=== PATIENT | male | born 1975 | race Caucasian/White ===

== ENCOUNTER 2019-04-16 14:09 | Outpatient (CLI) | payer MEDICAID ==
[~2019-04-16] VITALS: Ht 182.9 cm; Wt 77.6 kg
[2019-04-16 15:54] VITALS: BP 128/72
[2019-04-16] MEDS ORDERED: LEVOTHYROXINE125 MCG ORAL (15:54)
--- NOTE | 2019-04-16 17:15 | Consultation ---
DATE OF CONSULTATION: 04/16/2019 CONSULTING PHYSICIAN: Gibson Puentes M.D. CHIEF COMPLAINT: Constipation, rectal bleeding, rectal hemorrhoids, questionable anal fissures. HISTORY OF PRESENT ILLNESS: This is a 43-year-old male with history of Pradip disease and history of appendectomy complicated with small-bowel obstruction. He later presented to our office with complaint of constipation, rectal bleeding, and anal fissures. PAST MEDICAL HISTORY: 1. Pradip's. 2. Hypothyroidism. 3. IBS. 4. Depression. 5. Celiac disease per the patient. PAST SURGICAL HISTORY: 1. Appendectomy. 2. Small-bowel obstruction. MEDICATIONS: Levothyroxine. FAMILY HISTORY: No family history of GI malignancies. SOCIAL HISTORY: The patient denies any tobacco, alcohol, or IV drug abuse. ALLERGIES: Allergic to multiple food allergies including gluten. REVIEW OF SYSTEMS: Positive for constipation, rectal bleeding, and rectal pain. PHYSICAL EXAMINATION: VITAL SIGNS: Temperature 98, blood pressure is 128/72, pulse 68, and respirations 20. HEENT: Normocephalic and atraumatic. Sclerae anicteric. NECK: Supple. No evidence of obvious lymphadenopathy. CARDIOVASCULAR: Regular rate and rhythm. Plus S1 and S2. No obvious murmur. LUNGS: Clear to auscultation bilaterally. ABDOMEN: Positive bowel sounds. Soft, nontender. No rebound. No guarding. No peritoneal sign. EXTREMITIES: No cyanosis. No clubbing. No edema. ASSESSMENT AND PLAN: This is a 43-year-old male with constipation, hemorrhoids, rectal bleeding, anal fissures, and possible celiac disease. PLAN: The patient will need a colonoscopy for few reasons, one is for evaluation for anal fissures and rule out Crohn disease given anal fissures. He also has rectal bleeding and needs evaluation. The patient was given instruction and preparation for colonoscopy, pending authorization. In terms of constipation, we will start the patient on trial of Linzess 72 the patient was also given sample of 145. We recommended the patient to be tapered off of magnesium supplement he takes for constipation. On the procedure day, we will discuss with the patient regarding efficacy of this Linzess. Gibson Santos Puentes DR: RONALDO JOB#: [id number] CC:
== END 2019-04-16 16:00 | disposition home or self-care (01) ==
LOC: PAN 14:09
DX: K59.00 Constipation, unspecified (principal); K64.9 Unspecified hemorrhoids; K62.5 Hemorrhage of anus and rectum; K60.2 Anal fissure, unspecified; Z90.89 Acquired absence of other organs; E03.9 Hypothyroidism, unspecified; F32.9 Major depressive disorder, single episode, unspecified; K58.9 Irritable bowel syndrome, unspecified; K90.0 Celiac disease; Z79.899 Other long term (current) drug therapy
CPT/HCPCS: 99202

== ENCOUNTER 2019-05-11 13:16 | Outpatient (CLI) | payer MEDICAID ==
[~2019-05-11 13:16] MED LIST: LEVOTHYROXINE125 MCG ORAL
[2019-05-12 07:45] VITALS: BP 132/76
--- NOTE | 2019-05-12 08:48 | General Progress Note ---
Assessment/Plan Assessment/Plan: s/p colonoscopy diverticulosis min terminal ileitis nonspecific RTC prn Subjective ROS Limited/Unobtainable: Yes Allergies: Coded Allergies: [place] (Verified Allergy, Unknown, 04/16/19) KANG (Verified Allergy, Unknown, 04/16/19) BROCCOLI (Verified Allergy, Unknown, 04/16/19) BUCKWHEAT (Verified Allergy, Unknown, 04/16/19) CELERY (Verified Allergy, Unknown, 04/16/19) COCOA (Verified Allergy, Unknown, 04/16/19) Cane Sugar (Verified Allergy, Unknown, 04/16/19) Crab (Verified Allergy, Unknown, 04/16/19) Dairy (Verified Allergy, Unknown, 04/16/19) EGG (Verified Allergy, Unknown, 04/16/19) MILK (Verified Allergy, Unknown, 04/16/19) Mushroom (Verified Allergy, Unknown, 04/16/19) PINEAPPLE (Verified Allergy, Unknown, 04/16/19) Pecan (Verified Allergy, Unknown, 04/16/19) RADISH (Verified Allergy, Unknown, 04/16/19) [place] (Verified Allergy, Unknown, 04/16/19) TOMATO (Verified Allergy, Unknown, 04/16/19) WHEAT (Verified Allergy, Unknown, 04/16/19) Creole (Verified Allergy, Unknown, 04/16/19) YEAST (Verified Allergy, Unknown, 04/16/19) Objective Last 24 Hour Vital Signs Date Time Temp Pulse Resp B/P (MAP) Pulse Ox O2 Delivery O2 Flow Rate FiO2 05/12/19 07:45 98.6 69 16 132/76 (94) 97 General Appearance: alert EENT: normal ENT inspection Neck: supple Cardiovascular: normal rate Respiratory/Chest: decreased breath sounds Abdomen: normal bowel sounds, non tender, soft Extremities: non-tender Gibson Puentes MD May 12, 2019 08:48
== END 2019-05-11 15:16 | disposition home or self-care (01) ==
LOC: PAN 13:16
DX: K57.90 Diverticulosis of intestine, part unspecified, without perforation or abscess without bleeding (principal); K50.00 Crohn's disease of small intestine without complications; Z91.012 Allergy to eggs; Z91.011 Allergy to milk products; Z91.018 Allergy to other foods
CPT/HCPCS: 99212